=== PATIENT | female | born 1990 | race Caucasian/White ===

== ENCOUNTER 2018-06-08 10:34 | Emergency (ER) | payer BC, OTHER ==
--- NOTE | 2018-06-08 11:56 | ED ---
Dizziness - HPI Summary HPI Summary: This is scribe Lul Orozcosain documenting for attending Dr. Tung Gonzales MD. A 27 y/o female presents to ED c/o dizziness since 0100 last night reaching 5/ 10 in severity. In the ED room, the patient has a pulse of 111 BPM, O2 saturation of 100% and blood pressure of 118/74. As per triage, "Pt from [place] but came back recently from a vacation in [facility]. Pt reports dizziness that started at 0100, Pt states its hard to open eyes and she gets n/v. No Hx of migraines". According to the patient, she experiences dizziness since 0100 last night. Additionally symptoms include nausea, vomiting and clear nasal discharge , however, denies headache. She describes the dizziness as she is really drunk and it is not pleasant. Also, she denies any fall or head injury recently, however, had a low-grade fever of 99.8 last night. She tried Ibuprofen, but thew it up. Head movement makes it worse, however, if she closes her eyes it alleviates the symptoms. When she opens her eyes she cannot focus. As per , patient's eyes twitch when making eye contact ("shifts left to right") . She noted that she has been sick with a sinus cold the last few days. Additionally, her ears were congested with fluid on Friday (2 days ago). No current medications. PMHx of knee surgery (10 years ago). LKMP was yesterday, no chance of . Pt is able to walk with no issues. As per , he wants to check for tick-borne illness as patient had a red dot on the side of her right leg during their vacation. No tick was found, however, the thuy was a half dollar-sized oval well with a white ring around it. They thought it might be of concern with the patient's present illness. They have no good explanation of how it got there as it did not look like a mosquito bite and it was not itchy. Patient has never had a tick before. No PCP. - History Of Current Complaint Chief Complaint: EDDizziness Stated Complaint: DIZZINESS,N/V Time Seen by Provider: 06/08/18 10:51 Hx Obtained From: Patient Onset/Duration: Still Present, Suddenly - Starting at 0100 last night. Timing: Hours Severity Initially: Moderate - 5/10 Character: Head Spinning, Dizzy Aggravating Factor(s): Change In Head Position Alleviating Factor(s): Closing Eyes Associated Signs And Symptoms: Positive: Nausea, Vomiting, Visual Changes - Eyes twitch, Fever - Low-grade fever last night of 99.8 - Allergies/Home Medications Allergies/Adverse Reactions: Allergies Allergy/AdvReac Type Severity Reaction Status Date / Time No Known Allergies Allergy Verified 06/08/18 10:54 PMH/Surg Hx/FS Hx/Imm Hx Endocrine/Hematology History: Denies: Hx Diabetes Cardiovascular History: Denies: Hx Hypertension - Immunization History Immunizations Up to Date: Yes Infectious Disease History: No Infectious Disease History: Denies: Traveled Outside the [place] in Last 30 Days - Family History Known Family History: Positive: Other - Thyroid cancer (mother, 10 years ago). Negative: Hypertension, Diabetes - Social History Alcohol Use: Occasionally Substance Use Type: Reports: None Hx Tobacco Use: No Smoking Status (MU): Never Smoked Tobacco Review of Systems Positive: Other - Has been sick with sinus cold for last few days.. Negative: Fever - Did have low-grade fever of 99.8 last night, Chills Negative: Erythema Positive: Nasal Discharge - Clear, Other - Ears were congested with fluid 2 days ago.. Negative: Sore Throat Negative: Chest Pain Negative: Shortness Of Breath, Cough Positive: Vomiting, Nausea. Negative: Abdominal Pain Negative: dysuria, hematuria Negative: Myalgia, Edema Negative: Rash Neurological: Other - POSITIVE: Dizziness. All Other Systems Reviewed And Are Negative: Yes Physical Exam - Summary Physical Exam Summary: Constitutional: Well-developed, Well-nourished, Alert. (-) Distressed Skin: Warm, Dry HENT: Normocephalic; Atraumatic. Bilateral serous effusion with mild erythema in both Tympanic membranes. Eyes: Conjunctiva normal Neck: Musculoskeletal ROM normal neck. (-) JVD, (-) Stridor, (-) Tracheal deviation Cardio: Rhythm regular, rate normal, Heart sounds normal; Intact distal pulses; The pedal pulses are 2+ and symmetric. Radial pulses are 2+ and symmetric. (-) Murmur Pulmonary/Chest wall: Effort normal. (-) Respiratory distress, (-) Wheezes, (-) Rales Abd: Soft, (-) epigastric tenderness, (-) Distension, (-) Guarding, (-) Rebound Musculoskeletal: (-) Edema Lymph: (-) Cervical adenopathy Neuro: Alert, Oriented x3. Horizontal nystagmus Psych: Mood and affect Normal Triage Information Reviewed: Yes Vital Signs On Initial Exam: Initial Vitals Temp Pulse Resp BP Pulse Ox 98.1 F 113 16 123/68 98 06/08/18 10:38 06/08/18 10:38 06/08/18 10:38 06/08/18 10:38 06/08/18 10:38 Vital Signs Reviewed: Yes Diagnostics - Vital Signs Vital Signs Temp Pulse Resp BP Pulse Ox 06/08/18 10:38 98.1 F 113 16 123/68 98 - Laboratory Result Diagrams: 06/08/18 12:08 06/08/18 12:07 Lab Statement: Any lab studies that have been ordered have been reviewed, and results considered in the medical decision making process. Re-Evaluation - Re-Evaluation First Eval Re-Evaluation Time: 13:17 Change: Improved Comment: Feeling better. Nausea had improved. Second Eval Re-Evaluation Time: 14:30 Change: Improved Comment: Feeling much better. Patient just rolled over to right-side of bed and vomited again, however, she is feeling better. Dizzy Course/Dx - Course Course Of Treatment: A 27 y/o female presents to ED c/o dizziness since 0100 last night reaching 5/10 in severity. In the ED room, the patient has a pulse of 111 BPM, O2 saturation of 100% and blood pressure of 118/74. No laboratory scans were done. In the ED course, the patient recieved Antivert, Reglan and IV fluids. During reevaluation, patient was feeling much better. Nausea had improved. Patient just rolled over to right-side of bed and vomited again, however, she is feeling better. Patient will be discharged with a diagnosis of benign positional vertigo. Patient is to follow up with [facility] in 1-2 days. Patient is agreeable with this plan. - Diagnoses Provider Diagnoses: Benign positional vertigo Discharge - Sign-Out/Discharge Documenting (check all that apply): Patient Departure - DISCHARGE - Discharge Plan Condition: Stable Disposition: HOME Prescriptions: Meclizine TAB* [Antivert 12.5 TAB*] 25 mg PO TID #15 tab Ondansetron ODT TAB* [Zofran 4 MG Odt TAB*] 4 mg PO Q8H PRN #10 tab.odt PRN Reason: Nausea/Vomiting Patient Education Materials: Vertigo (ED) Referrals: [facility] [Outside] - 2 Days Additional Instructions: FOLLOW UP WITH [facility] IN 1-2 DAYS. RETURN TO ED FOR ANY NEW OR WORSENING SYMPTOMS.
[2018-06-08] MEDS ORDERED: NS 0.9% 1000 ML* 2,000 ML IV ONE (11:58)
[2018-06-08] MEDS ORDERED: Metoclopramide IV* 5 MG/ML 2 ML VIAL IV SLOW PU ONE (11:58)
[2018-06-08 12:20] LABS: Hematocrit 41 % (35-47); Mean Corpuscular HGB Conc 34 g/dl (31-36); Mean Corpuscular Hemoglobin 30 pg (27-31); Mean Corpuscular Volume 88 fL (80-97); Mean Platelet Volume 8.7 um3 (7.4-10.4); Platelet Count 155 10^3/ul (150-450); Red Blood Count 4.64 10^6/ul (4.00-5.40); Red Cell Distribution Width 13 % (10.5-15); White Blood Count 10.7 10^3/ul (3.5-10.8)
[2018-06-08] MEDS ORDERED: Meclizine TAB* 12.5 MG PO ONE (13:18)
[2018-06-08] MEDS ORDERED: Ondansetron ODT TAB* 4 MG PO ONE (15:21)
[2018-06-08 16:47] VITALS: BP 114/78
== END 2018-06-08 16:44 | disposition home or self-care (01) ==
LOC: ED 10:34
DX: H81.10 Benign paroxysmal vertigo, unspecified ear (principal)
CPT/HCPCS: 36415; 80053; 85027; 86618; 96361; 96374; 99283; A9270-GY; J2765

== ENCOUNTER 2022-05-11 05:24 | Inpatient (IN) ==
[2022-05-11] MEDS ORDERED: Lactated Ringers 1000 ml BAG 1,000 ML IV ONE ×2 (05:53→07:27)
[2022-05-11 06:35] LABS: ABS Eosinophils 0.1 10^3/ul (0-0.6); ABS Lymphocytes 1.2 10^3/ul (1.0-4.8); ABS Monocytes 0.6 10^3/ul (0-0.8); Eosinophil % 0.8 %; Hematocrit 37 % (35-47); Hemoglobin 12.5 g/dL (12.0-16.0); Lymphocyte % 13.5 %; Mean Corpuscular HGB Conc 34 g/dL (31-36); Mean Corpuscular Hemoglobin 29 pg (27-31); Mean Corpuscular Volume 86 fL (80-97); Platelet Count 130 10^3/uL (150-450); Red Blood Count 4.26 10^6 /uL (3.70-4.87); Red Cell Distribution Width 15 % (10-15); White Blood Count 8.9 10^3/uL (3.5-10.8)
[2022-05-11] MEDS ORDERED: OBEPIDURAL (200 ML) 200 ML EPIDURAL ONE (06:44)
[2022-05-11 06:53] LABS: Urine Benzodiazepine Screen None Detected (None Detect); Urine Cannabinoids Screen None Detected (None Detect); Urine Opiates Screen None Detected (None Detect)
[2022-05-11] MEDS ORDERED: Sodium Citrate/Citric Acid LIQ 15 ML UDC PO PRN (07:27)
[2022-05-11] MEDS ORDERED: Phenylephrine 40 mcg/mL 10mL (400mcg) SYRINGE IV PUSH PRN ×2 (07:27)
[2022-05-11] MEDS ORDERED: Lactated Ringers 1000 ml BAG 1,000 ML IV SCH ×2 (08:00→13:00)
[2022-05-11] MEDS ORDERED: OBEPIDURAL (200 ML) 200 ML EPIDURAL SCH (08:00)
[2022-05-11 08:34] LABS: Urine Appearance Clear; Urine Bilirubin Negative (Negative); Urine Blood Negative (Negative); Urine Color Yellow; Urine Glucose Negative (Negative); Urine Ketones Negative (Negative); Urine Nitrite Negative (Negative); Urine Protein Negative (Negative); Urine Specific Gravity 1.025 (1.005-1.030); Urine Urobilinogen 0.2 (Negative) (Negative)
[2022-05-11] MEDS ORDERED: Oxytocin in LR 20 UNITS/1,000 ML BAG IVPB ONE (08:53)
[2022-05-11] MEDS ORDERED: Dibucaine 1% OINT 28.35 GM TUBE PR PRN (12:05)
[2022-05-11] MEDS ORDERED: Witch Hazel PAD JAR TOPICAL PRN (12:05)
[2022-05-11] MEDS ORDERED: Glycerin ADULT 2.4 gm SUPP PR PRN (12:05)
[2022-05-11] MEDS ORDERED: Lidocaine 1% MPF 5 ML VIAL ONE (15:15)
[2022-05-12 07:17] LABS: ABS Eosinophils 0.1 10^3/ul (0-0.6); ABS Lymphocytes 1.6 10^3/ul (1.0-4.8); ABS Monocytes 0.6 10^3/ul (0-0.8); ABS Neutrophils 7.2 10^3/ul (1.5-7.7); Eosinophil % 0.6 %; Hematocrit 34 % (35-47); Hemoglobin 11.5 g/dL (12.0-16.0); Lymphocyte % 16.6 %; Mean Corpuscular HGB Conc 34 g/dL (31-36); Mean Corpuscular Hemoglobin 29 pg (27-31); Mean Corpuscular Volume 88 fL (80-97); Mean Platelet Volume 8.9 fL (7.4-10.4); Platelet Count 126 10^3/uL (150-450); Red Blood Count 3.91 10^6 /uL (3.70-4.87); Red Cell Distribution Width 15 % (10-15); White Blood Count 9.5 10^3/uL (3.5-10.8)
[2022-05-12 07:50] VITALS: BP 109/64
== END 2022-05-12 13:48 | disposition home or self-care (01) | DRG 560 ==
LOC: MCHOBOUT 05:24 → MCHOB 05:55
PROVIDERS: ADMIT Midwife; ATTEND Advanced Practice Midwife